=== PATIENT | male | born 1995 | race Two or more races ===

== ENCOUNTER 2019-08-09 14:10 | Emergency (ER) | payer MEDICAID, OTHER ==
[~2019-08-09] VITALS: Ht 177.8 cm; Wt 76.2 kg
[2019-08-09 14:58] LABS: Basophils # (auto) 0 uL; Basophils % (auto) 0.5 % (0.0-2.0); Eosinophils # (auto) 0.1 uL; Eosinophils % (auto) 1.6 % (0.0-7.0); Hematocrit 49.3 % (41.0-53.0); Hemoglobin 16.7 g/dL (13.5-17.5); Lymphocytes # (auto) 2.9 uL; Lymphocytes % (auto) 35.7 % (10.0-50.0); Mean Corpuscular Hgb Conc. 33.9 g/dL (32.0-36.0); Mean Corpuscular Volume 88.6 fL (80.0-100.0); Monocytes # (auto) 0.6 uL; Monocytes % (auto) 6.9 % (0.0-12.0); Neutrophils # (auto) 4.5 uL; Neutrophils % (auto) 55.3 % (37.0-80.0); Platelet Count (auto) 282 10^3/uL (140-450); Red Blood Cells 5.57 10^6/uL (4.5-5.90); Red Cell Distribution Width 13.1 % (11.8-14.3); White Blood Cell 8.2 10^3/uL (4.4-10.8)
[2019-08-09 15:24] LABS: Albumin 4.4 g/dL (3.4-5.0); Anion Gap 7 (5-15); Blood Urea Nitrogen 15 mg/dL (7-18); Calcium 9.4 mg/dL (8.5-10.1); Carbon Dioxide 27 mmol/L (21-32); Chloride 106 mmol/L (98-107); Glucose 99 mg/dL (74-106); Potassium 3.9 mmol/L (3.5-5.1); Sodium 140 mmol/L (136-145)
[2019-08-09 15:30] LABS: Alanine Aminotransferase 29 U/L (16-61); Alkaline Phosphatase 77 U/L (45-117); Aspartate Aminotransferase 20 U/L (15-37); BUN/Creatinine Ratio 15.3; Bilirubin, Total 0.4 mg/dL (0.2-1.0); GFR African American 123 mL/min; GFR Non-African American 102 mL/min; Total Protein 8.2 g/dL (6.4-8.2)
[2019-08-09 18:19] VITALS: BP 143/73
== END 2019-08-09 19:51 | disposition home or self-care (01) ==
LOC: ER 14:21
DX: R07.9 Chest pain, unspecified (principal); I10 Essential (primary) hypertension; F41.9 Anxiety disorder, unspecified
CPT/HCPCS: 36415; 80053; 84484; 85025; 93005

== ENCOUNTER 2020-08-25 14:06 | Emergency (ER) | payer MEDICAID ==
[~2020-08-25] VITALS: Ht 180.3 cm; Wt 75.3 kg
[2020-08-25] MEDS ORDERED: ONDANSETRON ODT 4 MG TAB PO ONE (14:15)
[2020-08-25 15:47] VITALS: BP 132/83
== END 2020-08-25 15:51 | disposition home or self-care (01) ==
LOC: ER 14:06
DX: K52.9 Noninfective gastroenteritis and colitis, unspecified (principal); Z20.828 Contact with and (suspected) exposure to other viral communicable diseases
CPT/HCPCS: 36415; 87426; Q0162

== ENCOUNTER → 2023-06-01 20:52 | Emergency (ER) | payer MEDICAID | END | disposition left against medical advice (07) | LOC: ER 20:52 | DX: M79.641 Pain in right hand (principal); Z53.21 Procedure and treatment not carried out due to patient leaving prior to being seen by health care provider ==

== ENCOUNTER 2025-06-13 08:30 | Emergency (ER) | payer MEDICAID ==
[~2025-06-13] VITALS: Ht 177.8 cm; Wt 84.6 kg
[2025-06-13] MEDS: HYDROcodone-ACET 10/325MG TAB PO ONE (09:05)
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
[2025-06-13 10:00] VITALS: BP 128/76; PULSE 122; RESP 16; TEMP 98.6; O2SAT 97
[2025-06-13] MEDS ORDERED: BACL10TA PO (10:02)
[2025-06-13] MEDS ORDERED: IBUP-1456 PO (10:02)
== END 2025-06-13 10:09 | disposition home or self-care (01) ==
LOC: ER 08:30
DX: S53.492A Other sprain of left elbow, initial encounter (principal); S00.03XA Contusion of scalp, initial encounter; S00.83XA Contusion of other part of head, initial encounter; F17.210 Nicotine dependence, cigarettes, uncomplicated; V89.2XXA Person injured in unspecified motor-vehicle accident, traffic, initial encounter; Y93.89 Activity, other specified; Y92.488 Other paved roadways as the place of occurrence of the external cause; Y99.8 Other external cause status
CPT/HCPCS: 70450; 70486; 72100; 73080